=== PATIENT | female | born 1985 | race Caucasian/White ===

== ENCOUNTER 2019-11-07 10:40 | Emergency (ER) | payer SELFPAY ==
[~2019-11-07] VITALS: Ht 162.6 cm; Wt 102.1 kg
[2019-11-07 10:45] VITALS: BP 120/74
--- NOTE | 2019-11-07 10:53 | NUR ---
34 y/o f c/o rt eye redness of the slcera inner eye x 3 days. pt denies pain. bed lowered to lowest position x1 side rail in place. pt positioned for comfort. nka
--- NOTE | 2019-11-07 11:07 | NUR ---
Patient discharged with v/s stable. Written and verbal after care instructions given and explained. Patient verbalized understanding. Ambulatory with steady gait. All questions addressed prior to discharge. Advised to follow up with PMD.
[2019-11-07 11:08] VITALS: BP 120/74
== END 2019-11-07 11:07 | disposition home or self-care (01) ==
LOC: MED 10:40
DX: H11.31 Conjunctival hemorrhage, right eye (principal); G43.909 Migraine, unspecified, not intractable, without status migrainosus
CPT/HCPCS: 99281

== ENCOUNTER 2021-08-26 18:28 | Emergency (ER) | payer OTHER ==
[~2021-08-26] VITALS: Ht 165.1 cm; Wt 100.2 kg
[2021-08-26 18:48] VITALS: BP 146/96
[2021-08-26] MEDS ORDERED: CEPH-588 PO (19:32)
[2021-08-26] MEDS ORDERED: IBUP-1842 PO (19:32)
--- NOTE | 2021-08-26 19:37 | NUR ---
Patient presents to the ED after a needle stick injury at work. Patient reports getting stuck by an epipen on her right thumb. Mild swelling and erythema noted on the right thumb. No bleeding or discharge noted. Vital signs within normal limits. Patient denies any discomfort or distress. No other medical hx.
[2021-08-26 20:02] VITALS: BP 132/81
--- NOTE | 2021-08-26 20:06 | NUR ---
Patient discharged with v/s stable. Written and verbal after care instructions given and explained. Patient alert, oriented and verbalized understanding of instructions. Ambulatory with steady gait. All questions addressed prior to discharge. ID band removed. Patient advised to follow up with PMD. Rx of keflex and motrin given. Patient educated on indication of medication including possible reaction and side effects. Opportunity to ask questions provided and answered.
== END 2021-08-26 20:06 | disposition home or self-care (01) ==
LOC: MED 18:28
DX: S61.031A Puncture wound without foreign body of right thumb without damage to nail, initial encounter (principal); W22.8XXA Striking against or struck by other objects, initial encounter; Y93.89 Activity, other specified; Y92.89 Other specified places as the place of occurrence of the external cause; Y99.8 Other external cause status
CPT/HCPCS: 90471; 90715; 99283

== ENCOUNTER 2021-10-08 17:07 | Emergency (ER) | payer OTHER ==
[~2021-10-08] VITALS: Ht 162.6 cm; Wt 103.9 kg
[~2021-10-08 17:07] MED LIST: CEPH-588 PO; IBUP-1842 PO
[2021-10-08 17:28] VITALS: BP 146/94
--- NOTE | 2021-10-08 17:33 | NUR ---
PT SENT TO LOBBY
--- NOTE | 2021-10-08 18:57 | NUR ---
36/F BIB SELF WITH C/O LOW BACK PAIN AND LOWER ABDOMINAL CRAMPING X1 HOUR. PATIENT STATES SHE RECEIVED AN IRON INFUSION AT [facility] THIS MORNING AND STATES SHE BEGAN HAVING 10/10 CRAMPING PAIN RADIATING TO HER BACK. DENIES V/D, CP, SOB. MEDHX: DENIES ALLERGIES: DENIES
--- NOTE | 2021-10-08 19:10 | NUR ---
Pt report given to JUDI HILLS. Transfer of care at this time.
[2021-10-08 20:48] LABS: BASOPHILS % (AUTO) 0.3 % (0.0-2.0); EOSINOPHILS # (AUTO) 0.4 K/uL (0-0.4); EOSINOPHILS % (AUTO) 4.8 % (0.0-4.0); HEMATOCRIT 33.6 % (36-48); HEMOGLOBIN 10.8 g/dL (12.0-16.0); LYMPHOCYTES # (AUTO) 2.3 K/uL (2.5-16.5); LYMPHOCYTES % (AUTO) 25.4 % (20.5-51.1); MEAN CORPUSCULAR HEMOGLOBIN 24 pg (27-31); MEAN CORPUSCULAR HGB CONC 32 g/dL (33-37); MONOCYTES # (AUTO) 0.4 K/uL (0.8-1.0); MONOCYTES % (AUTO) 4.6 % (1.7-9.3); NEUTROPHILS # (AUTO) 5.9 K/uL (1.8-7.7); NEUTROPHILS % (AUTO) 64.9 % (42.2-75.2); PLATELET COUNT (AUTO) 253 K/uL (140-450); RED BLOOD CELL COUNT(AUTO) 4.48 MIL/uL (4.20-5.40); RED CELL DISTRIBUTION WIDTH 16.2 % (11.6-13.7); WHITE BLOOD COUNT (AUTO) 9.1 K/uL (4.8-10.8)
[2021-10-08 21:05] LABS: ALBUMIN 3.5 g/dL (3.4-5.0); ANION GAP 13.1 (8-16); CARBON DIOXIDE 26.5 mmol/L (21-32); CREATININE 0.6 mg/dL (0.6-1.3); POTASSIUM 3.6 mmol/L (3.5-5.1); TOTAL BILIRUBIN 0.1 mg/dL (0.0-1.0)
--- NOTE | 2021-10-08 21:19 | NUR ---
PT CLEARED FOR DISCHARGE. DR. SMART PROVIDED ALL DISCHARGE INSTRUCTIONS AND TEACHINGS. PT AMBULATED TO PERSONAL VEHICLE IN STABLE CONDITION AND UNASSITED.
[2021-10-08 21:45] LABS: APPEARANCE,URINE CLEAR (CLEAR); BILIRUBIN,URINE NEGATIVE (NEGATIVE); BLOOD, URINE TRACE-I (NEGATIVE); COLOR,URINE YELLOW (YELLOW); LEUKOCYTE ESTERASE ,URINE NEGATIVE (NEGATIVE); NITRITE, URINE NEGATIVE (NEGATIVE); UGLUCOSE NEGATIVE (NEGATIVE)
[2021-10-08 21:55] LABS: RBC,URINE 0-5 /HPF (0-5)
[2021-10-08 21:56] LABS: WBC,URINE 0-5 /HPF (0-5)
== END 2021-10-08 21:19 | disposition home or self-care (01) ==
LOC: MED 17:07
DX: R10.31 Right lower quadrant pain (principal); R10.32 Left lower quadrant pain; I10 Essential (primary) hypertension; D64.9 Anemia, unspecified; Z79.899 Other long term (current) drug therapy; Z98.890 Other specified postprocedural states
CPT/HCPCS: 36415; 80053; 81001; 81025; 83690; 85025; 87086; 99283